=== PATIENT | female | born 1940 | race Caucasian/White ===

== ENCOUNTER 2018-02-15 21:20 | Emergency (ER) | payer OTHER ==
[~2018-02-15] VITALS: Ht 157.5 cm; Wt 77.1 kg
[~2018-02-15 21:20] MED LIST: LISINOPRIL5 MG PO; NABUMETONE750 MG PO; ORPH100T PO
[2018-02-15] MEDS ORDERED: BAYER CHEWABLE81 MG PO (21:36)
[2018-02-15] MEDS ORDERED: TOPROL XL50 MG PO (21:36)
[2018-02-15] MEDS ORDERED: PLAVIX75 MG PO (21:37)
[2018-02-15] MEDS ORDERED: ATORVASTATIN CA40 MG PO (21:37)
== END 2018-02-16 08:30 | disposition home or self-care (01) ==
LOC: ER 21:20 → CPU-OBS 21:21
DX: R07.89 Other chest pain (principal); M79.602 Pain in left arm